=== PATIENT | female | born 1960 | race Two or more races ===

== ENCOUNTER → 2017-03-13 | Outpatient (CLI) | payer MEDICARE, OTHER ==
--- NOTE | ~2017-03-13 | US6 ---
[facility] A Service of [facility] & [facility] RADIOLOGY TEXT RESULTS PATIENT: ANTOINE CHRISTIANSON LOCATION: US : 62 UNIT #: [id number] AGE: [address]: PILI FUNES APRN SEX: F ORDER DR: [id number] [facility] [address]. [place], [place] [address] [id number] O MR#: [id number] Acc #: [id number] NAME: ANTOINE CHRISTIANSON : 1960 SEX: F STUDY DATE/TIME: 03/13/2017 10:46 UNIT: [facility] ROOM: STUDY DESCRIPTION: US Abdominal Limited Attending Physician: Michael Funes M.D. Referring Physician: Michael Funes M.D. Ordering Physician: Michael Funes M.D. Primary Care Physician: Michael Funes M.D. MEDICAL IMAGING REPORT This report is preliminary unless electronic signature is present EXAM Limited abdominal ultrasound. COMPARISON None. INDICATIONS 56-year-old female with right upper quadrant abdominal pain for 5 years, worsening over last 2 months. FINDINGS Visualized portions of the pancreas are unremarkable. Hepatic echotexture is coarse and portal architecture is not well seen. Hepatic contour appears smooth. Hepatic length of 17.2 cm. The liver is echogenic to the right renal cortex consistent with steatosis. The right kidney is normal. Apparent sludge is seen within the gallbladder lumen. Gallbladder wall thickness is normal. No pericholecystic fluid. Normal caliber of the common bile duct at 4 mm. No shadowing cholelithiasis. Separate measurement of the common bile duct is up to 5 mm, also within normal limits for patient age. IMPRESSION 1. Mild hepatomegaly with hepatic steatosis. No evidence of cirrhosis. Please note that detailed evaluation of the liver cannot be performed due to under-penetration of the liver secondary to steatosis. No convincing evidence of cirrhosis. 2. Layering sludge within the gallbladder. There is no evidence of acute cholecystitis or biliary dilatation. Dictated by... Sami Munoz M.D. [facility] A Service of [facility] & [facility] RADIOLOGY TEXT RESULTS PATIENT: ANTOINE HCRISTIANSON LOCATION: [facility] : 62 UNIT #: [id number] AGE: [address]: PILI FUNES APRN SEX: F ORDER DR: THIS IS AN ELECTRONICALLY VERIFIED REPORT Sami Munoz M.D. at 03/19/2017 12:06 PM [place] TD: 03/14/2017 21:04 JOB #: [id number] MEDICAL IMAGING REPORT Page 1 of 1 COPY
== END | disposition home or self-care (01) ==
LOC: CGUS 02-25 10:30
DX: R10.11 Right upper quadrant pain (principal); K76.0 Fatty (change of) liver, not elsewhere classified; R16.0 Hepatomegaly, not elsewhere classified
CPT/HCPCS: 76705

== ENCOUNTER → 2017-03-27 | Outpatient (CLI) | payer OTHER | END | disposition home or self-care (01) | LOC: CNUC 08:00 → CECH 10:00 | DX: R06.02 Shortness of breath (principal); I10 Essential (primary) hypertension; I34.0 Nonrheumatic mitral (valve) insufficiency; I36.1 Nonrheumatic tricuspid (valve) insufficiency | CPT/HCPCS: 93306 ==